=== PATIENT | male | born 1940 | race Caucasian/White ===

== ENCOUNTER 2020-05-27 16:26 | Inpatient (IN) | payer OTHER, MEDICARE ==
[2020-05-27 17:24] LABS: Prothrombin Time 13.6 sec (12.0-14.7)
[2020-05-27 17:26] LABS: #Eosinphils 0.3 thou/uL (0.0-0.7); #Lymphocytes 1.5 thou/uL (1.20-3.40); #Monocytes 0.6 thou/uL (0.11-0.59); #Neutrophils 3.4 thou/uL (1.40-6.50); %Basophils 0.7 % (0.0-1.0); %Lymphocytes 26.4 % (21.0-51.0); %Monocytes 9.6 % (0.0-10.0); %Neutrophils 58.3 % (42.0-75.0); Hemoglobin 14.7 g/dL (14.0-18.0); Mean Corpuscular HGB CONC 34.3 g/dL (32.0-36.0); Mean Corpuscular Hemoglobin 32.6 pg (27.0-31.0); Mean Platelet Volume 9.3 fL (7.4-10.4); Platelet Count 164 thou/uL (130-400); RBC Distribution Width 11.9 % (11.5-14.5); Red Blood Cell (RBC) Count 4.52 mill/uL (4.70-6.10); White Blood Cell (WBC) Count 5.8 thou/uL (4.8-10.8)
[2020-05-27 17:30] LABS: ALT (SGPT) 16 U/L (8-55); AST (SGOT) 27 U/L (5-34); Albumin 3.9 g/dL (3.4-4.8); Alkaline Phosphatase 74 U/L (40-110); Anion Gap 16 mmol/L (10-20); BUN (Urea Nitrogen) 17 mg/dL (8.4-25.7); Bilirubin, Total 0.7 mg/dL (0.2-1.2); Calc. Creatinine Clearance 0 mL/min (70-130); Calcium 8.3 mg/dL (7.8-10.44); Carbon Dioxide 21 mmol/L (23-31); Chloride 108 mmol/L (98-107); Glucose 103 mg/dL (83-110); Potassium 3.6 mmol/L (3.5-5.1); Protein, Total 6.9 g/dL (5.8-8.1); Sodium 141 mmol/L (136-145)
[2020-05-27] MEDS ORDERED: Dextrose 5% in Water 1,000 ML IV PRN (18:09)
[2020-05-27] MEDS ORDERED: Ondansetron PF 4 MG/2 ML Vial IVP PRN (18:09)
[2020-05-27] MEDS ORDERED: hydrALAZINE 20 MG/ML VIAL SLOW IVP PRN (18:09)
[2020-05-27] MEDS ORDERED: traMADol HCl 50 MG TAB PO PRN ×2 (18:09)
[2020-05-27] MEDS ORDERED: Dextrose 50% Abboject 50 ML SYRINGE SLOW IVP PRN (18:09)
[2020-05-27] MEDS ORDERED: Ondansetron ODT 4 MG TAB PO PRN (18:09)
[2020-05-27 20:50] VITALS: BMI 23.6
[2020-05-27] MEDS: Cyclobenzaprine 10 MG TAB PO PRN (21:00)
[2020-05-27] MEDS: Morphine 2 MG/ML VIAL SLOW IVP PRN (21:04)
[2020-05-27] MEDS ORDERED: CEFAZOLIN 2 GM in Premix Bag 1 BAG IVPB SCH (22:15)
[2020-05-27] MEDS: Acetaminophen 500 MG TAB PO SCH (23:41)
[2020-05-28] MEDS: Acetaminophen 500 MG TAB PO SCH ×3 (02:47→17:35)
[2020-05-28] MEDS: Morphine 2 MG/ML VIAL SLOW IVP PRN (04:51)
[2020-05-28] MEDS: Sodium Chloride 0.9% 1,000 ML IV SCH ×2 (04:51→08:26)
[2020-05-28 05:24] LABS: #Eosinphils 0.1 thou/uL (0.0-0.7); #Lymphocytes 1.5 thou/uL (1.20-3.40); #Monocytes 0.8 thou/uL (0.11-0.59); #Neutrophils 5.1 thou/uL (1.40-6.50); %Basophils 0.3 % (0.0-1.0); %Eosinophils 0.7 % (0.0-10.0); %Lymphocytes 20.3 % (21.0-51.0); %Monocytes 10.3 % (0.0-10.0); %Neutrophils 68.4 % (42.0-75.0); Hemoglobin 13.3 g/dL (14.0-18.0); Mean Corpuscular HGB CONC 34.3 g/dL (32.0-36.0); Mean Corpuscular Hemoglobin 32.9 pg (27.0-31.0); Mean Corpuscular Volume 96.1 fL (78.0-98.0); Platelet Count 160 thou/uL (130-400); RBC Distribution Width 12.1 % (11.5-14.5); Red Blood Cell (RBC) Count 4.04 mill/uL (4.70-6.10); White Blood Cell (WBC) Count 7.4 thou/uL (4.8-10.8)
[2020-05-28 05:47] LABS: Anion Gap 12 mmol/L (10-20); BUN (Urea Nitrogen) 16 mg/dL (8.4-25.7); Calc. Creatinine Clearance 45 mL/min (70-130); Calcium 7.8 mg/dL (7.8-10.44); Carbon Dioxide 24 mmol/L (23-31); Chloride 107 mmol/L (98-107); Glucose 109 mg/dL (83-110); Phosphorus 3.5 mg/dL (2.3-4.7); Sodium 139 mmol/L (136-145)
[2020-05-28] MEDS ORDERED: CEFAZOLIN 2 GM in Premix Bag 1 BAG IVPB SCH (08:00)
[2020-05-28 08:02] LABS: SARS-CoV-2 NAA Rapid Test Not Detected (NotDetected)
[2020-05-28] MEDS ORDERED: FLU VACC QS2020-21(65YR UP)/PF 240 MCG/0.7 ML SYRINGE IM ONE (09:00)
[2020-05-28] MEDS ORDERED: Famotidine 20 MG TAB PO SCH (09:00)
[2020-05-28] MEDS ORDERED: Fentanyl 100 MCG/2 ML VIAL ONE ×3 (09:23→12:39)
[2020-05-28] MEDS ORDERED: ePHEDrine 50 MG/ML VIAL ONE (09:57)
[2020-05-28] MEDS ORDERED: Dexamethasone 20 MG/5 ML VIAL ONE (09:57)
[2020-05-28] MEDS ORDERED: Lidocaine 1% PF 5 ML VIAL ONE (09:57)
[2020-05-28] MEDS ORDERED: Ondansetron PF 4 MG/2 ML Vial ONE (09:57)
[2020-05-28] MEDS ORDERED: PHENYLEPHRINE-NS 100 MCG/ML 10 ML SYRINGE ONE (09:57)
[2020-05-28] MEDS ORDERED: Glycopyrrolate 0.2 MG/ML 5 ML SYRINGE ONE (09:57)
[2020-05-28] MEDS ORDERED: PROPOFOL 200 MG/20 ML VIAL ONE (09:57)
[2020-05-28] MEDS ORDERED: Rocuronium Bromide 10 MG/ML (10ML VIAL) ONE (09:57)
[2020-05-28] MEDS ORDERED: Ondansetron HCl/PF 4 MG/2 ML Vial IVP PRN (11:58)
[2020-05-28] MEDS ORDERED: Promethazine HCl 25 MG/ML VIAL IM PRN (11:58)
[2020-05-28] MEDS ORDERED: Promethazine HCl 25 MG/ML VIAL SLOW IVP PRN (11:58)
[2020-05-28] MEDS ORDERED: Ketorolac Tromethamine 30 MG/ML VIAL IVP PRN (11:58)
[2020-05-28] MEDS: hydrALAZINE 10 MG TAB PO SCH (14:39)
[2020-05-28] MEDS: CEFAZOLIN 2 GM in Premix Bag 1 BAG IVPB SCH (17:35)
[2020-05-29] MEDS: Acetaminophen 500 MG TAB PO SCH ×5 (00:03→23:12)
[2020-05-29] MEDS: CEFAZOLIN 2 GM in Premix Bag 1 BAG IVPB SCH (00:05)
[2020-05-29] MEDS ORDERED: hydrALAZINE 10 MG TAB PO SCH (09:00)
[2020-05-29] MEDS: Amlodipine 5 MG TAB PO SCH (09:11)
[2020-05-29] MEDS: Colchicine 0.6 MG TAB PO SCH (09:12)
[2020-05-29] MEDS: Atorvastatin Calcium 40 MG TAB PO SCH (09:12)
[2020-05-29] MEDS: hydrALAZINE 10 MG TAB PO SCH (09:12)
[2020-05-29] MEDS: Enoxaparin Sodium 40 MG/0.4 ML SYRINGE SC SCH (09:13)
[2020-05-29] MEDS: Cyclobenzaprine 10 MG TAB PO PRN (10:20)
[2020-05-29] MEDS: traMADol HCl 50 MG TAB PO SCH ×3 (11:20→23:12)
[2020-05-29] MEDS ORDERED: Pantoprazole 40 MG GRANULES PACKET PO SCH (15:30)
[2020-05-29] MEDS: Gabapentin 100 MG CAP PO SCH ×2 (16:25→20:13)
[2020-05-30] MEDS: Acetaminophen 500 MG TAB PO SCH ×5 (05:52→23:41)
[2020-05-30] MEDS: traMADol HCl 50 MG TAB PO SCH ×5 (05:52→23:42)
[2020-05-30] MEDS: Colchicine 0.6 MG TAB PO SCH (08:32)
[2020-05-30] MEDS: Gabapentin 100 MG CAP PO SCH ×4 (08:32→20:24)
[2020-05-30] MEDS: Atorvastatin Calcium 40 MG TAB PO SCH (08:32)
[2020-05-30] MEDS: Amlodipine 5 MG TAB PO SCH (08:32)
[2020-05-30] MEDS: Enoxaparin Sodium 40 MG/0.4 ML SYRINGE SC SCH (08:33)
[2020-05-30] MEDS: hydrALAZINE 10 MG TAB PO SCH (08:37)
[2020-05-30] MEDS ORDERED: Morphine 2 MG/ML VIAL SLOW IVP PRN (09:39)
[2020-05-30] MEDS: Senokot S 8.6-50 MG TAB PO SCH ×2 (10:05→20:25)
[2020-05-30] MEDS: Polyethylene Glycol 3350 17 GM Packet PO SCH (10:05)
[2020-05-30] MEDS: Cyclobenzaprine 10 MG TAB PO PRN (13:45)
[2020-05-31] MEDS: Acetaminophen 500 MG TAB PO SCH ×4 (05:42→23:09)
[2020-05-31] MEDS: traMADol HCl 50 MG TAB PO SCH ×4 (05:42→23:09)
[2020-05-31] MEDS: Senokot S 8.6-50 MG TAB PO SCH ×2 (08:28→22:02)
[2020-05-31] MEDS: hydrALAZINE 10 MG TAB PO SCH (08:28)
[2020-05-31] MEDS: Polyethylene Glycol 3350 17 GM Packet PO SCH (08:29)
[2020-05-31] MEDS: Gabapentin 100 MG CAP PO SCH ×3 (08:29→19:53)
[2020-05-31] MEDS: Colchicine 0.6 MG TAB PO SCH (08:29)
[2020-05-31] MEDS: Atorvastatin Calcium 40 MG TAB PO SCH (08:29)
[2020-05-31] MEDS: Enoxaparin Sodium 40 MG/0.4 ML SYRINGE SC SCH (08:30)
[2020-05-31] MEDS: Amlodipine 5 MG TAB PO SCH (08:30)
[2020-06-01] MEDS: Acetaminophen 500 MG TAB PO SCH ×3 (05:48→17:54)
[2020-06-01] MEDS: traMADol HCl 50 MG TAB PO SCH ×3 (05:49→17:54)
[2020-06-01] MEDS: Colchicine 0.6 MG TAB PO SCH (08:31)
[2020-06-01] MEDS: Amlodipine 5 MG TAB PO SCH (08:33)
[2020-06-01] MEDS: Gabapentin 100 MG CAP PO SCH ×2 (08:35→15:56)
[2020-06-01] MEDS: Senokot S 8.6-50 MG TAB PO SCH ×2 (08:38→19:54)
[2020-06-01] MEDS: Atorvastatin Calcium 40 MG TAB PO SCH (08:38)
[2020-06-01] MEDS: Enoxaparin Sodium 40 MG/0.4 ML SYRINGE SC SCH (08:39)
[2020-06-01] MEDS: Polyethylene Glycol 3350 17 GM Packet PO SCH (08:39)
[2020-06-01] MEDS: hydrALAZINE 10 MG TAB PO SCH (15:54)
[2020-06-01] MEDS: Gabapentin 300 MG CAP PO SCH (19:56)
[2020-06-02] MEDS: Acetaminophen 500 MG TAB PO SCH ×4 (00:24→14:54)
[2020-06-02] MEDS: traMADol HCl 50 MG TAB PO SCH ×4 (00:25→14:55)
[2020-06-02] MEDS: Enoxaparin Sodium 40 MG/0.4 ML SYRINGE SC SCH (07:59)
[2020-06-02] MEDS: Amlodipine 5 MG TAB PO SCH (08:00)
[2020-06-02] MEDS: Senokot S 8.6-50 MG TAB PO SCH (08:00)
[2020-06-02] MEDS: Gabapentin 300 MG CAP PO SCH ×2 (08:00→14:55)
[2020-06-02] MEDS: Atorvastatin Calcium 40 MG TAB PO SCH (08:00)
[2020-06-02] MEDS: Colchicine 0.6 MG TAB PO SCH (08:00)
[2020-06-02] MEDS: Polyethylene Glycol 3350 17 GM Packet PO SCH ×2 (08:02→08:13)
[2020-06-02] MEDS: hydrALAZINE 10 MG TAB PO SCH (08:02)
[2020-06-02] MEDS ORDERED: Bisacodyl 10 MG SUPP PR SCH (09:00)
[2020-06-02 19:40] VITALS: BP 148/77; TEMP 98.1
== END 2020-06-02 20:10 | DRG 482 ==
LOC: ERS 16:26 → SURG A 18:09
PROVIDERS: ADMIT Surgery; ATTEND Surgery
PROC: 0QS636Z Reposition Right Upper Femur with Intramedullary Internal Fixation Device, Percutaneous Approach (ICD-10-PCS; principal; 2020-05-28)
DX: S72.21XA Displaced subtrochanteric fracture of right femur, initial encounter for closed fracture (principal); K21.9 Gastro-esophageal reflux disease without esophagitis; E78.5 Hyperlipidemia, unspecified; I12.9 Hypertensive chronic kidney disease with stage 1 through stage 4 chronic kidney disease, or unspecified chronic kidney disease; M10.9 Gout, unspecified; N18.9 Chronic kidney disease, unspecified; R33.9 Retention of urine, unspecified; W10.9XXA Fall (on) (from) unspecified stairs and steps, initial encounter; Z20.822 Contact with and (suspected) exposure to COVID-19; Y92.811 Bus as the place of occurrence of the external cause; Z90.49 Acquired absence of other specified parts of digestive tract; Z90.89 Acquired absence of other organs; Z95.1 Presence of aortocoronary bypass graft; Z86.718 Personal history of other venous thrombosis and embolism
CPT/HCPCS: 36415; 71045; 72170; 76000; 80048; 80053; 83735; 84100; 85025; 85610; 85730; 93005; 94760; C1713; G0390; J0690; J1100; J1650; J2270; J2405; J2704; J3010; J3490; U0002

== ENCOUNTER 2021-12-25 13:31 | Inpatient (IN) | payer MEDICARE ==
[2021-12-25 14:29] LABS: #Lymphocytes 0.9 thou/uL (1.20-3.40); #Monocytes 0.4 thou/uL (0.11-0.59); #Neutrophils 3.1 thou/uL (1.40-6.50); %Basophils 0.5 % (0.0-1.0); %Eosinophils 0.4 % (0.0-10.0); %Lymphocytes 19.6 % (21.0-51.0); %Monocytes 8.2 % (0.0-10.0); %Neutrophils 71.3 % (42.0-75.0); Hemoglobin 15.3 g/dL (14.0-18.0); Mean Corpuscular HGB CONC 33.3 g/dL (32.0-36.0); Mean Corpuscular Hemoglobin 32.2 pg (27.0-31.0); Mean Corpuscular Volume 96.8 fl (78.0-98.0); Mean Platelet Volume 9.4 fL (7.4-10.4); Platelet Count 119 thou/uL (130-400); RBC Distribution Width 11.9 % (11.5-14.5); Red Blood Cell (RBC) Count 4.77 mill/uL (4.70-6.10); White Blood Cell (WBC) Count 4.4 thou/uL (4.8-10.8)
[2021-12-25 14:45] LABS: Large Platelets SLIGHT; MDiff Complete? YES; Platelet Morphology Comment Appears Decreased; RBC Morphology Normal
[2021-12-25 14:49] LABS: ALT (SGPT) 35 U/L (8-55); AST (SGOT) 57 U/L (5-34); Albumin 3.9 g/dL (3.4-4.8); Alkaline Phosphatase 69 U/L (40-110); Anion Gap 13 mmol/L (10-20); BUN (Urea Nitrogen) 33 mg/dL (8.4-25.7); Bilirubin, Total 1.3 mg/dL (0.2-1.2); CK (CPK) 131 U/L (30-200); Calc. Creatinine Clearance 0 mL/min (70-130); Calcium 8.5 mg/dL (7.8-10.44); Carbon Dioxide 27 mmol/L (23-31); Chloride 102 mmol/L (98-107); Estimated GFR 31; Globulin 2.7 g/dL (2.4-3.5); Glucose 166 mg/dL (83-110); Potassium 3.9 mmol/L (3.5-5.1); Protein, Total 6.6 g/dL (5.8-8.1); Sodium 138 mmol/L (136-145)
[2021-12-25] MEDS ORDERED: Ondansetron ODT 4 MG TAB PO PRN (15:59)
[2021-12-25] MEDS ORDERED: Acetaminophen 650 MG Suppository PR PRN (15:59)
[2021-12-25] MEDS ORDERED: Acetaminophen 325 MG TAB PO PRN ×2 (15:59→16:00)
[2021-12-25] MEDS ORDERED: Ondansetron PF 4 MG/2 ML Vial IVP PRN (15:59)
[2021-12-25] MEDS ORDERED: Sodium Chloride 0.9% 1,000 ML IV SCH ×2 (16:00)
[2021-12-25] MEDS ORDERED: GUAIFENESIN SF SOLN 200 MG/10 ML UDCUP PO PRN (16:30)
[2021-12-25] MEDS ORDERED: Famotidine 20 MG TAB PO SCH (21:00)
[2021-12-25] MEDS: Sodium Chloride 0.9% 1,000 ML IV SCH (21:05)
[2021-12-25 21:25] VITALS: BMI 20.6
[2021-12-26] MEDS: Sodium Chloride 0.9% 1,000 ML IV SCH ×2 (02:44→15:21)
[2021-12-26 04:51] LABS: #Eosinphils 0.1 thou/uL (0.0-0.7); #Lymphocytes 1.5 thou/uL (1.20-3.40); #Monocytes 0.4 thou/uL (0.11-0.59); #Neutrophils 2.6 thou/uL (1.40-6.50); %Basophils 0.9 % (0.0-1.0); %Eosinophils 1.3 % (0.0-10.0); %Lymphocytes 32.1 % (21.0-51.0); %Monocytes 9.3 % (0.0-10.0); %Neutrophils 56.5 % (42.0-75.0); Hemoglobin 14.5 g/dL (14.0-18.0); Mean Corpuscular HGB CONC 33.5 g/dL (32.0-36.0); Mean Corpuscular Hemoglobin 32.1 pg (27.0-31.0); Mean Corpuscular Volume 95.8 fl (78.0-98.0); Mean Platelet Volume 9.5 fL (7.4-10.4); Platelet Count 116 thou/uL (130-400); RBC Distribution Width 11.7 % (11.5-14.5); Red Blood Cell (RBC) Count 4.52 mill/uL (4.70-6.10); White Blood Cell (WBC) Count 4.5 thou/uL (4.8-10.8)
[2021-12-26 05:19] LABS: Anion Gap 12 mmol/L (10-20); BUN (Urea Nitrogen) 27 mg/dL (8.4-25.7); Calc. Creatinine Clearance 33 mL/min (70-130); Calcium 8.7 mg/dL (7.8-10.44); Carbon Dioxide 28 mmol/L (23-31); Chloride 104 mmol/L (98-107); Estimated GFR 43; Glucose 102 mg/dL (83-110); Potassium 3.2 mmol/L (3.5-5.1); Sodium 141 mmol/L (136-145)
[2021-12-26] MEDS: Aspirin 81 mg Enteric Coated Tablet PO SCH ×2 (09:38→09:43)
[2021-12-26] MEDS ORDERED: Potassium Chloride 20 MEQ TAB PO SCH (11:45)
[2021-12-26] MEDS ORDERED: Benzonatate 100 MG CAP PO SCH (13:30)
[2021-12-26] MEDS ORDERED: guaiFENesin/DM ER PO SCH (14:30)
[2021-12-26] MEDS: Benzonatate 100 MG CAP PO SCH ×2 (16:26→22:18)
[2021-12-26] MEDS ORDERED: Atorvastatin Calcium 40 MG TAB PO SCH (21:00)
[2021-12-26] MEDS: guaiFENesin/DM ER PO SCH (22:18)
[2021-12-27 05:02] LABS: #Eosinphils 0.1 thou/uL (0.0-0.7); #Lymphocytes 1.3 thou/uL (1.20-3.40); #Monocytes 0.5 thou/uL (0.11-0.59); #Neutrophils 2.7 thou/uL (1.40-6.50); %Basophils 0.1 % (0.0-1.0); %Eosinophils 1.5 % (0.0-10.0); %Lymphocytes 28.6 % (21.0-51.0); %Monocytes 11.2 % (0.0-10.0); %Neutrophils 58.6 % (42.0-75.0); Hemoglobin 14.2 g/dL (14.0-18.0); Mean Corpuscular Hemoglobin 31.9 pg (27.0-31.0); Mean Corpuscular Volume 96.4 fl (78.0-98.0); Platelet Count 137 thou/uL (130-400); RBC Distribution Width 11.9 % (11.5-14.5); Red Blood Cell (RBC) Count 4.45 mill/uL (4.70-6.10); White Blood Cell (WBC) Count 4.6 thou/uL (4.8-10.8)
[2021-12-27 05:25] LABS: Anion Gap 15 mmol/L (10-20); BUN (Urea Nitrogen) 22 mg/dL (8.4-25.7); Calc. Creatinine Clearance 40 mL/min (70-130); Calcium 8.5 mg/dL (7.8-10.44); Carbon Dioxide 23 mmol/L (23-31); Chloride 108 mmol/L (98-107); Estimated GFR 53; Glucose 90 mg/dL (83-110); Potassium 3.5 mmol/L (3.5-5.1); Sodium 142 mmol/L (136-145)
[2021-12-27] MEDS: Benzonatate 100 MG CAP PO SCH ×3 (08:35→20:37)
[2021-12-27] MEDS: Aspirin 81 mg Enteric Coated Tablet PO SCH (08:35)
[2021-12-27] MEDS: guaiFENesin/DM ER PO SCH ×2 (08:36→20:37)
[2021-12-27] MEDS ORDERED: Amlodipine 5 MG TAB PO SCH (09:00)
[2021-12-27] MEDS ORDERED: Atorvastatin Calcium 40 MG TAB PO SCH (21:00)
[2021-12-28 04:53] LABS: #Eosinphils 0.1 thou/uL (0.0-0.7); #Lymphocytes 1.3 thou/uL (1.20-3.40); #Monocytes 0.6 thou/uL (0.11-0.59); #Neutrophils 2.9 thou/uL (1.40-6.50); %Basophils 0.3 % (0.0-1.0); %Eosinophils 1.7 % (0.0-10.0); %Lymphocytes 26.5 % (21.0-51.0); %Monocytes 12.8 % (0.0-10.0); %Neutrophils 58.7 % (42.0-75.0); Hemoglobin 14.4 g/dL (14.0-18.0); Mean Corpuscular HGB CONC 34.2 g/dL (32.0-36.0); Mean Corpuscular Hemoglobin 33.2 pg (27.0-31.0); Mean Platelet Volume 8.5 fL (7.4-10.4); Platelet Count 158 thou/uL (130-400); RBC Distribution Width 11.8 % (11.5-14.5); Red Blood Cell (RBC) Count 4.33 mill/uL (4.70-6.10)
[2021-12-28 05:10] LABS: Anion Gap 11 mmol/L (10-20); BUN (Urea Nitrogen) 19 mg/dL (8.4-25.7); Calc. Creatinine Clearance 35 mL/min (70-130); Calcium 8.4 mg/dL (7.8-10.44); Carbon Dioxide 25 mmol/L (23-31); Chloride 109 mmol/L (98-107); Estimated GFR 45; Glucose 103 mg/dL (83-110); Potassium 4.1 mmol/L (3.5-5.1); Sodium 141 mmol/L (136-145)
[2021-12-28] MEDS ORDERED: Amlodipine 5 MG TAB PO SCH (09:00)
[2021-12-28] MEDS: guaiFENesin/DM ER PO SCH (09:15)
[2021-12-28] MEDS: Benzonatate 100 MG CAP PO SCH ×2 (09:15→16:02)
[2021-12-28] MEDS: Aspirin 81 mg Enteric Coated Tablet PO SCH (09:15)
[2021-12-28 16:01] VITALS: BP 124/70; TEMP 98.2
== END 2021-12-28 18:15 | disposition home health service (06) | DRG 312 ==
LOC: ERS 13:31 → ERHOLD 15:41 → 2NO 18:21 → OBSVTOIN 12-27 13:01
PROVIDERS: ADMIT Internal Medicine; ATTEND Internal Medicine
DX: I95.1 Orthostatic hypotension (principal); N17.9 Acute kidney failure, unspecified; Z20.822 Contact with and (suspected) exposure to COVID-19; E87.6 Hypokalemia; R94.5 Abnormal results of liver function studies; K21.9 Gastro-esophageal reflux disease without esophagitis; E78.5 Hyperlipidemia, unspecified; I12.9 Hypertensive chronic kidney disease with stage 1 through stage 4 chronic kidney disease, or unspecified chronic kidney disease; Z60.2 Problems related to living alone; E86.0 Dehydration; J06.9 Acute upper respiratory infection, unspecified; N18.30 Chronic kidney disease, stage 3 unspecified; Z95.1 Presence of aortocoronary bypass graft; Z79.899 Other long term (current) drug therapy; Z79.82 Long term (current) use of aspirin
CPT/HCPCS: 36415; 36416; 70450; 70551; 71045; 80048; 80053; 82550; 83880; 84484; 85025; 87804; 93005; 93306; 93880; 95816; 95819; 95957; G0378; J7050; U0003; U0005

== ENCOUNTER 2022-08-12 17:19 | Outpatient (CLI) | payer MEDICARE | END 2022-08-12 17:20 | disposition home or self-care (01) | LOC: SCSRAD 17:19 | PROVIDERS: ATTEND Physician Assistant | DX: M79.672 Pain in left foot (principal); M19.072 Primary osteoarthritis, left ankle and foot ==

== ENCOUNTER 2022-12-23 07:20 | Outpatient (CLI) | payer MEDICARE | END 2022-12-23 07:21 | disposition home or self-care (01) | LOC: ULT 07:20 | PROVIDERS: ATTEND Internal Medicine Nephrology | DX: I13.10 Hypertensive heart and chronic kidney disease without heart failure, with stage 1 through stage 4 chronic kidney disease, or unspecified chronic kidney disease (principal); I25.10 Atherosclerotic heart disease of native coronary artery without angina pectoris; K21.9 Gastro-esophageal reflux disease without esophagitis; N41.0 Acute prostatitis; N18.30 Chronic kidney disease, stage 3 unspecified; R31.9 Hematuria, unspecified; E78.5 Hyperlipidemia, unspecified; M10.9 Gout, unspecified; M19.90 Unspecified osteoarthritis, unspecified site | CPT/HCPCS: 76770; 93975 ==